=== PATIENT | female | born 1960 | race Caucasian/White ===

== ENCOUNTER 2019-01-03 23:04 | Emergency (ER) | payer SELFPAY ==
[~2019-01-03] VITALS: Ht 154.9 cm; Wt 74.0 kg
[2019-01-04] MEDS ORDERED: DIPHENHYDRAMINE 25MG CAPSULE PO ONE (00:30)
[2019-01-04 03:00] VITALS: BP 122/57
== END 2019-01-04 03:01 | disposition home or self-care (01) ==
LOC: ER 23:04
DX: T39.315A Adverse effect of propionic acid derivatives, initial encounter (principal); E11.9 Type 2 diabetes mellitus without complications; I10 Essential (primary) hypertension; Z88.6 Allergy status to analgesic agent; Y92.018 Other place in single-family (private) house as the place of occurrence of the external cause
CPT/HCPCS: 99283; Q0163

== ENCOUNTER 2021-07-07 07:34 | Emergency (ER) | payer MEDICAID ==
[~2021-07-07] VITALS: Ht 154.9 cm; Wt 68.0 kg
[2021-07-07 07:35] VITALS: BP 152/82
[2021-07-07] MEDS ORDERED: ACETAMINOPHEN 325MG TABLET PO ONE (08:15)
[2021-07-07] MEDS ORDERED: TOPUD PO (09:26)
== END 2021-07-07 10:00 | disposition home or self-care (01) ==
LOC: ER 07:34
DX: M79.672 Pain in left foot (principal); M75.31 Calcific tendinitis of right shoulder; M25.521 Pain in right elbow; M79.89 Other specified soft tissue disorders; I10 Essential (primary) hypertension; E11.9 Type 2 diabetes mellitus without complications; E78.00 Pure hypercholesterolemia, unspecified
CPT/HCPCS: 73030; 73070; 73620; 99284

== ENCOUNTER 2025-01-26 02:28 | Emergency (ER) | payer MEDICAID ==
[~2025-01-26] VITALS: Ht 160 cm; Wt 59.0 kg
[~2025-01-26 02:28] MED LIST: TOPUD PO
[2025-01-26 02:41] VITALS: TEMP 36.7; O2SAT 100
[2025-01-26 03:19] LABS: CREATININE 0.8 mg/dL (0.6-1.0); UREA NITROGEN BLOOD 10 mg/dL (9-23)
[2025-01-26 03:20] LABS: TROPONIN I HIGH SENSITIVITY < 4 ng/L (3.0-34)
[2025-01-26 03:30] LABS: BASOPHILS % 0.6 % (0.0-2.0); EOSINOPHILS % 1.5 % (0.0-5.0); HEMATOCRIT. 37.5 % (36.0-48.0); HEMOGLOBIN. 12.2 g/dL (12.0-16.0); LYMPHOCYTES % 30.3 % (20.0-50.0); MEAN PLATELET VOLUME 8.2 fl (7.4-10.4); MONOCYTES % 8.9 % (2.0-8.0); NEUTROPHILS % 58.7 % (40.0-76.0); PLATELET 289 x1000/uL (130-400); RED BLOOD CELL COUNT 4.84 mill/uL (4.2-5.4); RED CELL DISTRIBUTION WIDTH 14.1 % (11.6-14.6)
[2025-01-26] MEDS: MORPHINE SULFATE 4 MG/ML INJ (FOR IV/IM USE) IV ONE (04:38)
[2025-01-26] MEDS: ONDANSETRON HCL 4MG/2ML INJ IV ONE (04:39)
[2025-01-26 05:27] LABS: TROPONIN I HIGH SENSITIVITY < 4 ng/L (3.0-34)
[2025-01-26 06:16] VITALS: BP 126/67; PULSE 72; RESP 16; O2SAT 98
== END 2025-01-26 08:30 | disposition left against medical advice (07) ==
LOC: ER 02:28 → EDBEDREQ 05:04 → EDBEDREQTM 05:04 → CANRESERV 07:14 → ENRESERV 07:14 → CANBEDREQ 08:13 → ER 08:30
DX: R07.9 Chest pain, unspecified (principal); I10 Essential (primary) hypertension; E11.9 Type 2 diabetes mellitus without complications; Z88.6 Allergy status to analgesic agent
CPT/HCPCS: 99285; 96374; 71045; 96375; 80048; 85025; 84484; 36415; 93005; J2405; J2270